=== PATIENT | male | born 1955 | race African-American/Black ===

== ENCOUNTER → 2018-03-18 | Outpatient (CLI) | payer MEDICARE, BC ==
[2018-03-18 15:35] LABS: ABSOLUTE BASOPHILS 0.1 thou/uL (0.0-0.2); ABSOLUTE EOSINOPHILS 0.1 thou/uL (0.0-0.7); ABSOLUTE LYMPHOCYTES 0.9 thou/uL (0.8-5.3); ABSOLUTE MONOCYTES 0.6 thou/uL (0.0-1.2); ABSOLUTE NEUTROPHILS 4.2 thou/uL (1.6-8.1); BASOPHILS 1.4 %; HEMATOCRIT 34.8 % (42.0-52.0); HEMOGLOBIN 11.2 gm/dL (14.0-18.0); LYMPHOCYTES 15.2 %; MCHC 32.2 g/dL (28.0-37.0); MCV 80.8 fL (80.0-100.0); MONOCYTES 9.7 %; NUCLEATED RBCS 0 /100WBC; PLATELET COUNT* 222 thou/uL (150-400); POLYS 71.7 %; RBC 4.31 mil/uL (4.50-6.00); RDW-CV 22.3 % (10.5-14.5); WBC 5.9 thou/uL (4.0-11.0)
[2018-03-18 15:43] LABS: APTT 29.9 Seconds (25.0-31.3); INR 1.2; PROTIME 11.4 Seconds (9.20-11.50)
[2018-03-18 15:49] LABS: ALBUMIN 2.8 g/dL (3.4-5.0); CALCIUM 7.9 mg/dL (8.5-10.1); CREATININE 7.9 mg/dL (0.6-1.3); POTASSIUM 3.9 mmol/L (3.5-5.1); TOTAL BILIRUBIN 0.2 mg/dL (<0.1-1.0); TOTAL PROTEIN 9.5 g/dL (6.4-8.2)
[2018-03-18 16:03] LABS: OVALOCYTES Occasional
[2018-03-18 16:04] LABS: ANISOCYTOSIS 2+; HYPOCHROMASIA Occasional
[2018-03-18 16:06] LABS: PLATELET ESTIMATE ADEQUATE
[2018-03-18 16:07] LABS: POLYCHROMASIA Occasional
[2018-03-18 16:41] LABS: ESR (SEDRATE) 100 mm/hr (0-20)
[2018-03-18 16:58] VITALS: BP 127/81
[2018-03-18 17:20] VITALS: BP 133/74
[2018-03-18 17:26] LABS: CSF GLUCOSE 56 mg/dl (40-70); CSF PROTEIN 46.8 mg/dl (15-45)
[2018-03-18 17:40] VITALS: BP 140/78
[2018-03-18 17:55] LABS: CSF CLARITY CLEAR; CSF COLOR COLORLESS; CSF RBC 1 /mm3; CSF WBC 3 /mm3 (0-10); VOLUME 11.6 ml
[2018-03-18 18:00] VITALS: BP 144/83
[2018-03-18 18:30] VITALS: BP 158/92
== END | disposition home or self-care (01) ==
LOC: M.RAD 15:00
PROVIDERS: Psychiatry & Neurology Neuromuscular Medicine
DX: H47.10 Unspecified papilledema (principal); R51 Headache; Z79.01 Long term (current) use of anticoagulants